=== PATIENT | male | born 1980 | race Caucasian/White ===

== ENCOUNTER 2022-10-16 17:21 | Emergency (ER) | payer MEDICAID ==
[~2022-10-16] VITALS: Ht 167.6 cm; Wt 74.8 kg
[2022-10-16 17:41] VITALS: BP 127/83; PULSE 75; RESP 16; TEMP 98.4; O2SAT 100
[2022-10-16] MEDS ORDERED: LIDOCAINE HCL/PF 1% 10 MG/ML 5ML VIAL INFIL ONE (19:00)
[2022-10-16] MEDS ORDERED: TETANUS, DIPHTHERIA, PERTUSSIS VAC/PF 0.5ML (>10YR OLD) IM ONE (19:00)
[2022-10-16] MEDS ORDERED: BACITRACIN ZINC OINT UDPKT TOP ONE (19:00)
== END 2022-10-16 19:59 | disposition home or self-care (01) ==
LOC: ER 17:21
DX: S61.213A Laceration without foreign body of left middle finger without damage to nail, initial encounter (principal); W26.0XXA Contact with knife, initial encounter; Y93.G1 Activity, food preparation and clean up; Y92.89 Other specified places as the place of occurrence of the external cause; Y99.8 Other external cause status
CPT/HCPCS: 90715; 90471; 99283; J3490; Z7610 ×2

== ENCOUNTER 2023-01-02 12:30 | Emergency (ER) | payer MEDICAID ==
[~2023-01-02] VITALS: Ht 157.5 cm; Wt 64.5 kg
[2023-01-02 12:53] VITALS: O2SAT 100
[2023-01-02 15:43] VITALS: BP 116/78; PULSE 78; RESP 16; TEMP 98.6
== END 2023-01-02 16:04 | disposition home or self-care (01) ==
LOC: ER 14:33
DX: M79.645 Pain in left finger(s) (principal)
CPT/HCPCS: 73140; 99283

== ENCOUNTER 2023-09-06 13:51 | Emergency (ER) | payer MEDICAID ==
[~2023-09-06] VITALS: Ht 170.2 cm; Wt 77.5 kg
[2023-09-06 14:07] VITALS: O2SAT 99
[2023-09-06] MEDS: CYCLOBENZAPRINE 10MG TABLET PO ONE (15:33)
[2023-09-06] MEDS: KETOROLAC 30MG/ML VIAL IM STA (15:34)
[2023-09-06] MEDS ORDERED: NAPR-681 PO (15:55)
[2023-09-06] MEDS ORDERED: CYCL5TAB MT (15:55)
[2023-09-06 16:34] VITALS: BP 116/74; PULSE 88; RESP 20; TEMP 97.5
== END 2023-09-06 16:36 | disposition home or self-care (01) ==
LOC: ER 13:58
DX: S40.011A Contusion of right shoulder, initial encounter (principal); S16.1XXA Strain of muscle, fascia and tendon at neck level, initial encounter; X58.XXXA Exposure to other specified factors, initial encounter; Y93.89 Activity, other specified; Y92.89 Other specified places as the place of occurrence of the external cause; Y99.8 Other external cause status
CPT/HCPCS: 99283; 73030; 96372; J1885

== ENCOUNTER 2024-02-20 21:32 | Emergency (ER) | payer MEDICAID ==
[~2024-02-20] VITALS: Ht 162.6 cm; Wt 78.9 kg
[~2024-02-20 21:32] MED LIST: CYCL5TAB3 MT; NAPR-681 PO
[2024-02-20 21:40] VITALS: TEMP 99.2; O2SAT 99
[2024-02-20] MEDS ORDERED: ACETAMINOPHEN 325MG TABLET PO ONE (22:15)
[2024-02-21] MEDS ORDERED: IBUP-2028 PO (00:11)
[2024-02-21 00:28] VITALS: BP 120/76; PULSE 70; RESP 18; O2SAT 99
[2024-02-21] MEDS: ACETAMINOPHEN 325MG TABLET PO NR (00:28)
== END 2024-02-21 00:30 | disposition home or self-care (01) ==
LOC: ER 21:32
DX: M54.50 Low back pain, unspecified (principal); F19.90 Other psychoactive substance use, unspecified, uncomplicated
CPT/HCPCS: 74176; 99284